=== PATIENT | male | born 2000 | race Caucasian/White ===

== ENCOUNTER 2021-10-13 21:18 | Emergency (ER) | payer BC, OTHER ==
[~2021-10-13] VITALS: Ht 185.4 cm; Wt 86.2 kg
[2021-10-13 21:20] VITALS: BP_SYST 143
--- NOTE | 2021-10-13 21:20 | NUR ---
Patient triaged and placed in waiting room. VSS and patient appears in no acute distress at this time. Accompanied by friend, awaiting available bed, and MD notified of need for MSE.
--- NOTE | 2021-10-13 22:21 | NUR ---
Patient to ER CHAIR to gown for evaluation. Side rails up. Report given to CRISTINO SORTO.
--- NOTE | 2021-10-13 22:58 | NUR ---
ER at bedside examining patient.
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
--- NOTE | 2021-10-13 23:06 | NUR ---
ICE PACK GIVEN AND PLACED BEHIND BACK.
[2021-10-14 00:19] VITALS: BP_SYST 143
--- NOTE | 2021-10-14 00:20 | NUR ---
Patient given written and verbal discharge instructions and verbalizes understanding. DR.D'AGOSTINO SMILEY LIRIANO discussed with patient the results and treatment provided. Patient in stable condition. ID arm band removed. Patient educated on pain management and to follow up with PMD. Pain Scale 0/10. Opportunity for questions provided and answered. Medication side effect fact sheet provided.
== END 2021-10-14 00:20 | disposition home or self-care (01) ==
LOC: SED 21:18
DX: S06.0X0A Concussion without loss of consciousness, initial encounter (principal); S13.4XXA Sprain of ligaments of cervical spine, initial encounter; S00.83XA Contusion of other part of head, initial encounter; W22.8XXA Striking against or struck by other objects, initial encounter; Y93.89 Activity, other specified; Y92.89 Other specified places as the place of occurrence of the external cause; Y99.8 Other external cause status
CPT/HCPCS: 72040-TC; 99283